=== PATIENT | female | born 1985 ===

== ENCOUNTER 2016-11-27 11:46 | Emergency (ER) | payer BC, MEDICAID, OTHER ==
[~2016-11-27] VITALS: Ht 167.6 cm; Wt 90.0 kg
[~2016-11-27 11:46] MED LIST: SERT100 PO
[2016-11-27 11:50] VITALS: BP 138/80; PULSE 85; RESP 12; TEMP 99.1; O2SAT 99
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
[2016-11-27] MEDS ORDERED: KETOROLAC TROMETHAMINE 60 MG/2 ML (IM) VIAL IM ONE (13:30)
[2016-11-27] MEDS ORDERED: ORPHENADRINE INJ 60 MG/2 ML AMP IM ONE (13:30)
[2016-11-27] MEDS ORDERED: IBUP800T23 PO (13:36)
[2016-11-27] MEDS ORDERED: ROBA500T PO (13:36)
== END 2016-11-27 13:49 | disposition home or self-care (01) ==
LOC: NEPB 11:46
DX: S39.012A Strain of muscle, fascia and tendon of lower back, initial encounter (principal); S16.1XXA Strain of muscle, fascia and tendon at neck level, initial encounter; F17.210 Nicotine dependence, cigarettes, uncomplicated; V49.9XXA Car occupant (driver) (passenger) injured in unspecified traffic accident, initial encounter
CPT/HCPCS: 96372; 99283; J1885; J2360; L0150